=== PATIENT | male | born 1970 | race African-American/Black ===

== ENCOUNTER 2019-03-03 14:17 | Emergency (ER) | payer SELFPAY ==
[~2019-03-03] VITALS: Ht 182.9 cm; Wt 100.0 kg
[2019-03-03] MEDS ORDERED: KETOROLAC 60MG/2ML VIAL IM STA (15:20)
[2019-03-03 16:49] VITALS: BP 132/86
== END 2019-03-03 16:52 | disposition home or self-care (01) ==
LOC: ER 14:17
DX: S00.03XA Contusion of scalp, initial encounter (principal); S80.12XA Contusion of left lower leg, initial encounter; V43.62XA Car passenger injured in collision with other type car in traffic accident, initial encounter; Y93.89 Activity, other specified; Y92.488 Other paved roadways as the place of occurrence of the external cause
CPT/HCPCS: 73590; 96372; 99283; J1885